=== PATIENT | male | born 1990 | race African-American/Black ===

== ENCOUNTER 2017-08-11 13:59 | Observation (INO) | payer BC ==
--- NOTE | 2017-08-11 14:05 | EDPHY ---
H & P Time Seen by Provider: 08/11/17 14:03 HPI/ROS: CHIEF COMPLAINT: Rapid heart rate, dizziness HISTORY OF PRESENT ILLNESS: 27-year-old male previously healthy presents with sudden onset of rapid heart rate and dizziness. He was at work this afternoon, when he had a sudden onset of rapid heart rate. Associated with SOB, dizziness and a feeling like he might faint. Sx increase with standing and walking, better while sitting. He just started taking a weight loss supplement. Last dose was yesterday evening. Drinks one Red Bull beverage daily. REVIEW OF SYSTEMS: Constitutional: No fever, recent illness Eyes: No visual changes ENT: No sore throat Respiratory: No cough Cardiac: No chest pain Gastrointestinal: no vomiting, no abdominal pain Genitourinary: no dysuria Musculoskeletal: No leg pain or swelling Skin: No rash Neurological: No headache, no weakness Psychiatric: No depression Past Medical/Surgical History: Denies Family history: Father has congestive heart failure, no known dysrhythmia Social History: Works at [employer] No drug use Smoking Status: Never smoked Physical Exam: General Appearance: Alert, pleasant, obese Eyes: Pupils equal and round, no conjunctival pallor or injection ENT, Mouth: Mucous membranes moist Neck: Normal inspection Respiratory: Lungs are clear to auscultation Cardiovascular: Irregularly regular tachycardia Gastrointestinal: Abdomen is soft and nontender Neurological: A&O, nonfocal, normal gait Skin: Warm and dry, no rash Extremities: Nontender, no pedal edema Psychiatric: Mood and affect normal Constitutional: Initial Vital Signs Temperature (C) 36.8 C 08/11/17 13:59 Heart Rate 115 H 08/11/17 13:59 Respiratory Rate 20 08/11/17 13:59 Blood Pressure 128/84 H 08/11/17 13:59 O2 Sat (%) 99 08/11/17 13:59 O2 Delivery Mode Room Air Allergies/Adverse Reactions: No Known Allergies Allergy (Verified 08/11/17 15:01) Home Medications: Medication Instructions Recorded Herbals/Supplements -Info Only 1 ea PO DAILY 08/11/17 Multivitamins [Multivitamin (*)] 1 each PO DAILY 08/11/17 Apixaban [Eliquis] 5 mg PO BID #60 tab 08/12/17 Medical Decision Making - Diagnostics EKG Interpretation: EKG interpreted by me reveals atrial fibrillation, ventricular rate 137, QRS interval 0.08, no ST or T segment changes. Imaging Results: Chest x-ray independently reviewed by me reveals no acute disease. ED Course/Re-evaluation: This patient presents in new onset atrial fibrillation. He is quite symptomatic , with shortness of breath and dizziness. EKG reveals atrial fibrillation, with ventricular rate of 137. Narrow complex QRS. Chest x-ray independently reviewed by me: NAD Diltiazem 10 mg IV bolus given. Heart rate decreased to the 70s. The diltiazem drip was not initiated, given rapid control of heart rate with 1 IV dose of diltiazem. He was taken to telemetry in stable condition. Symptoms most likely related to excessive caffeine and stimulant use. He was counseled to avoid stimulant use in the future. I spent a total of 35 minutes of critical care time in obtaining history, performing a physical exam, bedside monitoring of interventions, collecting and interpreting tests and discussion with consultants but not including time spent performing procedures. Differential Diagnosis: Differential diagnosis includes does not limited to pulmonary embolism, pneumonia, thyrotoxicosis, electrolyte abnormality, ventricular dysrhythmia. - Data Points Laboratory Results: Laboratory Results 08/11/17 13:59 08/11/17 13:59 Medications Given: Discontinued Medications Apixaban (Eliquis) 5 mg PO BID KEVIN Stop: 02/07/18 20:59 Last Admin: 08/12/17 09:26 Dose: 5 mg Diltiazem HCl (Cardizem 25 Mg/5 Ml Vial) 10 mg IVP EDNOW ONE Stop: 08/11/17 14:20 Last Admin: 08/11/17 14:47 Dose: Not Given Diltiazem HCl (Cardizem) 10 mg IV ONCE ONE Stop: 08/11/17 14:46 Last Admin: 08/11/17 14:48 Dose: 10 mg Diltiazem HCl (Cardizem Immediate Release) 15 mg PO Q6HRS KEVIN Stop: 02/08/18 07:29 Last Admin: 08/12/17 08:29 Dose: Not Given Sodium Chloride (Ns) 1,000 mls @ 0 mls/hr IV ONCE ONE PRN Reason: Wide Open Stop: 08/11/17 14:18 Last Admin: 08/11/17 14:22 Dose: 1,000 mls Diltiazem HCl 125 mg/ Dextrose 125 mls @ 0 mls/hr IV EDNOW ONE; As Directed PRN Reason: Protocol Stop: 08/11/17 14:20 Last Admin: 08/11/17 15:59 Dose: Not Given Diltiazem/Dextrose (Diltiazem 125mg/125ml (Premix)) 125 mls @ 0 mls/hr IV CONT KEVIN; Titrate PRN Reason: Protocol Stop: 08/11/17 15:01 Last Admin: 08/11/17 19:37 Dose: Not Given Departure - Departure Disposition: [facility] Acute Clinical Impression: Atrial fibrillation with RVR Condition: Fair
--- NOTE | 2017-08-11 14:15 | CPEKG ---
Heart Rate: 137 RR Interval: 438 QRSD Interval: 82 QT Interval: 320 QTC Interval: 484 QRS Wood: 53 T Wave Wood: 43 EKG Severity - ABNORMAL ECG - EKG Impression: ATRIAL FIBRILLATION, V-RATE 73-183 EKG Impression: BORDERLINE PROLONGED QT INTERVAL Electronically Signed By: Rosette Gonzalez 11-Aug-2017 15:25:35
[2017-08-11 14:17] LABS: PLATELET COUNT 228 10^3/uL (150-400)
[2017-08-11] MEDS ORDERED: NS 1,000 ML IV ONE (14:17)
[2017-08-11] MEDS ORDERED: DILTIAZEM 125 MG in D5W 125 ML IV ONE (14:19)
[2017-08-11] MEDS ORDERED: DILTIAZEM 25 MG/5 ML VIAL IVP ONE (14:19)
[2017-08-11] MEDS ORDERED: DILTIAZEM 50 MG/10 ML VIAL IV ONE (14:45)
[2017-08-11] MEDS: DILTIAZEM HCL/D5W 125 ML IV SCH ×2 (14:56→19:37)
[2017-08-11] MEDS ORDERED: ONDANSETRON 4 MG/2 ML VIAL IVP PRN (15:32)
[2017-08-11] MEDS ORDERED: ONDANSETRON DISINTEGRATING 4 MG TAB PO PRN (15:32)
[2017-08-11] MEDS ORDERED: ACETAMINOPHEN 325 MG TAB PO PRN (15:32)
[2017-08-11] MEDS ORDERED: DILTIAZEM 125 MG in D5W 125 ML IV SCH (15:45)
[2017-08-11] MEDS ORDERED: DILTIAZEM HCL/D5W 125 ML IV SCH (16:00)
--- NOTE | 2017-08-11 17:49 | GHP ---
[f rep st] HISTORY AND PHYSICAL DATE OF ADMISSION: 08/11/2017 CHIEF COMPLAINT: Palpitations and dizziness. 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 Prior to this episode, patient reports being in his normal state of health, tolerated a normal breakfast. Den ied any vision changes, headache, subjective fevers, chills. Denied any new rashes. Denied changes in his bowel habits, urinary concerns, hematuria, melena, hematochezia, lower extremity edema. The p atient describes that his palpitations have resolved since arriving to the emergency department. He no longer is feeling dizzy. In general, he reports taking 8 bottles of water a day and normal dietar y intake. PAST MEDICAL HISTORY: Obesity. SOCIAL HISTORY: Negative for tobacco, alcohol, or illicit drugs. FAMILY HISTORY: No history of atrial fibrillation or heart disease. REVIEW OF SYSTEMS: A 10-point review of systems is negative with the exception of that reported in t he HPI. PHYSICAL EXAMINATION: VITAL SIGNS: Blood pressure is 108/70, heart rate 115, respiratory rate 12, 9 8% on room air, 36.7. GENERAL: This is a pleasant young male sitting up in bed. HEENT: Exam is no table for moist mucous membranes. Eye exam is negative for any icterus. CARDIAC EXAM: Patient is i rregularly irregular. PULMONARY: Clear to auscultation bilaterally. GASTROINTESTINAL: Positive mena wel sounds. Abdomen is soft and nontender. MUSCULOSKELETAL: Negative for any lower extremity edema . SKIN: Negative for any rashes. NEUROLOGIC: He is alert and oriented. PSYCHIATRIC: He is pleas ant and cooperative on interview and examination. DATA: White count 6.0, hematocrit 45.1, platelets of 228. Creatinine of 1.1. EKG, which I personal ly reviewed and interpreted, shows atrial fibrillation, normal axis, and no acute ST-T changes. ASSESSMENT AND PLAN: This is a 27-year-old male presenting with new-onset atrial fibrillation. 1. Acute atrial fibrillation. The patient with rapid rate in the emergency department. We have ini tiated diltiazem push and drip and will monitor the patient overnight on telemetry in hopes that he s pontaneously converts. We will check a TSH, a drug screen, and a transthoracic echocardiogram. I di d review the case briefly with Cardiology, who recommend Eliquis anticoagulation for 1 month, even if he spontaneously converts. He can follow in the outpatient setting with [facility] at the 30 day ahmet for discontinuation if his rhythm remains in sinus rhythm. 2. Morbid obesity. This is certainly a contributor as we believe the patient's use of diet suppleme nts may have been the instigating cause. Did discuss healthy lifestyle living, working toward weight loss with other modalities. 3. Prophylaxis with Eliquis. 4. Diet: Regular. 5. Disposition: I expect in less than 2 midnights if the patient spontaneously converts to sinus ov ernight. I have discussed the case with the emergency room physician. Patient will be triaged to the PCU for care. /[id number]/MODL
[2017-08-11] MEDS: APIXABAN 5 MG TAB PO SCH (21:05)
[2017-08-12] MEDS ORDERED: DILTIAZEM 30 MG TAB PO SCH (07:30)
[2017-08-12] MEDS ORDERED: ENOXAPARIN 40 MG/0.4 ML SYR SC SCH (09:00)
[2017-08-12] MEDS: APIXABAN 5 MG TAB PO SCH (09:26)
--- NOTE | 2017-08-12 11:35 | ECHO ---
[email or web address] [address] [address] Main: [phone] Fax: Transthoracic Echocardiogram Name: STEWART SANCHEZ MR#: [id number] Study Date: 08/12/2017 Study Time: 10:03 AM Date of : 1990 Age: 27 year(s) Height: 170.2 cm (67 in.) Weight: 136.99 kg (302 lb.) BSA: 2.41 m2 Gender: Male Examination: Echo Indication: new afib Image Quality: Adequate Contrast: Requested by: Karen Wray BP: 123 mmHg/66 mmHg Heart Rate: Rhythm: Indication: new afib Procedure Staff Clay Dry Press Helper: Kathie Gallo RDCS Reading Physician: Carter Bernard MD Requesting Provider: Conclusions: Normal size left ventricle. EF is 66 %. The left atrium is normal in size. The mitral valve is normal in appearance and function. Trivial mitral valve regurgitation. The aortic valve is normal in appearance and function. Trivial tricuspid valve regurgitation. Pulmonary artery pressure is not obtained due to inadequate TR jet. There is no previous echocardiogram for comparison. Normal study Measurements: Chambers Valvular Assessment AV/MV Valvular Assessment TV/PV Normal Normal Normal Name Value Range Name Value Range Name Value Range Ao Vangie (MM): 2.9 cm (2.2 cm-3.7 AV Vmax: 1.12 m/s (1 m/s-1.7 PV Vmax: 1.30 m/s (0.6 m/s-0.9 cm) m/s) m/s) IVSd (2D): 1.0 cm (0.6 cm-1.1 AV maxP mmHg ( - ) PV PGmax: 7 mmHg ( - ) cm) LVOT Vmax: 1.02 m/s (0.7 m/s-1.1 LVDd (2D): 4.1 cm (4.2 cm-5.9 m/s) cm) MV E Vmax: 0.76 m/s ( - ) LVDs (2D): 2.7 cm (2.1 cm-4 MV A Vmax: 0.42 m/s ( - ) cm) MV E/A: 1.81 ( - ) LVPWd (2D): 1.0 cm (0.6 cm-1 cm) LVEF (BP): 66 % (>=55 %) RVDd(2D): 3.5 cm (1.9 cm-3.8 cmmm) Continued Measurements: Patient: STEWART SANCHEZ Study Date: 08/12/2017 Page 1 of 2 10:03 AM Chambers Valvular Assessment AV/MV Name Value Name Value LADs: 3.3 cm MV DecTime: 137 m/s LADs Lon.5 cm MV E' Septal: 0.13 m/s LA Area: 19.7 cm2 MV E/E' Septal: 5.90 LA Volume: 54 ml MV E/E' Lateral: 4.90 LA Volume Index: 22.4 ml/m2 RA Area: 16.9 cm2 Additional Vessels Name Value Ao Ascendin.0 cm Findings: Left Ventricle: Normal size left ventricle. No LV hypertrophy. Normal global systolic LV function. EF is 66 %. No regional wall motion abnormality. Normal diastolic LV function. Right Ventricle: Normal size right ventricle. Normal RV function. Left Atrium: The left atrium is normal in size. Right Atrium: The right atrium is normal in size. Mitral Valve: The mitral valve is normal in appearance and function. Trivial mitral valve regurgitation. No mitral stenosis is present. Aortic Valve: The aortic valve is normal in appearance and function. There is no aortic valve regurgitation. No aortic valve stenosis is present. Tricuspid Valve: The tricuspid valve is normal in appearance and function. Trivial tricuspid valve regurgitation. Pulmonary artery pressure is not obtained due to inadequate TR jet. Pulmonic Valve: The pulmonic valve is normal in appearance and function. Trivial pulmonic valve regurgitation. Aorta: The aorta is normal. Normal size aortic root measuring 2.9 cm. Normal size ascending aorta measuring 3.0 cm. Pericardium: No pericardial effusion. (No Signature Object) Patient: STEWART SANCHEZ Study Date: 08/12/2017 Page 2 of 2 10:03 AM [id number]
[2017-08-12 11:37] VITALS: BP 120/71
--- NOTE | 2017-08-12 17:34 | ASDISCHSUM ---
Discharge Information Plan Status:Home with No Needs Medically Cleared to Leave: Discharge Date:08/12/2017 11:58 AM CM D/C Disposition:Home, Routine, Self-Care ADT D/C Disposition:Home, Routine, Self-Care Projected Discharge Date:08/12/2017 11:58 AM Transportation at D/C:Family Discharge Delay Reason: Follow-Up Date:08/12/2017 11:58 AM Discharge Slot: Final Diagnosis: Placement Information Patient Contact Information Contact Name:POOJA Relationship:Other Address: Home Phone: City: [facility] Phone: State/Zip Code: Email: Financial Information Financial Class:HMO and PPO Plans Primary Plan Desc: OUT OF STATE PPO Primary Plan Number:[id number] Secondary Plan Desc: Secondary Plan Number: Assessment Information Intervention Information
--- NOTE | 2017-08-12 17:37 | GDS ---
[f rep st] DISCHARGE SUMMARY DISCHARGE DIAGNOSES: Include: 1. Acute atrial fibrillation. 2. Obesity. HISTORY OF PRESENT ILLNESS: A pleasant 27-year-old male with obesity, presents with new onset palpit ations and atrial fibrillation. For details of patient's initial presentation, please see the histor y and physical dated 08/11/2017. CONSULTATIVE SERVICES: None. PROCEDURES: On 08/12/2017, patient had a transthoracic echocardiogram that showed normal LV size and function without serious valvular abnormalities. HOSPITAL COURSE BY ISSUE: 1. Acute atrial fibrillation with rapid ventricular response: Based on the patient's history, we conway spect that the patient's atrial fibrillation was provoked by stimulant diet supplementation. In the outpatient setting, patient had a workup for reversible causes, all of which were negative. He was a dmitted to the PCU. Had been treated initially with diltiazem pushes in the emergency department and then spontaneously converted to sinus rhythm overnight. After discussion with Cardiology, their rec ommendation was to treat the patient with Eliquis for 30 days post spontaneous conversion and follow in the outpatient setting. Patient's heart rates are in the normal range on the day of disposition. He has been provided a 30 day Eliquis card and has been asked to follow at [facility] in the next 2-3 weeks for post disposition followup. 2. Obesity: He was educated about the risks of stimulant diet supplement as well as [id number] r congestion medications with stimulant components. MEDICATIONS AT THE TIME OF TRANSFER: Please reference the med rec printed on 08/12/2017. FOLLOWUP APPOINTMENTS: Include with [facility] in the next 2-3 weeks for post disposition followu p. PENDING STUDIES: At the time of this dictation, none. TIME SPENT: I spent greater than 30 minutes in the planning and coordination of this discharge. /[id number]/MODL
== END 2017-08-12 11:58 | disposition home or self-care (01) ==
LOC: EDUNIT# → F2W 15:15
PROVIDERS: ADMIT Hospitalist; ATTEND Hospitalist
PROC: 3E033RZ Introduction of Antiarrhythmic into Peripheral Vein, Percutaneous Approach (ICD-10-PCS; principal; 2017-08-11)
DX: I48.91 Unspecified atrial fibrillation (principal); E66.01 Morbid (severe) obesity due to excess calories; R00.2 Palpitations; Z68.42 Body mass index [BMI] 45.0-49.9, adult
CPT/HCPCS: 71046; 93005; 93306; G0378; 80307; 96374; G0480